=== PATIENT | male | born 2000 | race Caucasian/White ===

== ENCOUNTER → 2019-11-25 16:35 | Outpatient (CLI) | payer OTHER, SELFPAY ==
--- NOTE | 2019-11-25 16:37 | DI.RAD.S_ITS ---
PROCEDURE: XR FOOT LT MIN 3V INDICATIONS: left foot and great toe pain TECHNIQUE: 3 views of the foot were acquired. COMPARISON: None. FINDINGS: Bones: No fractures or dislocations. No suspicious bony lesions. Soft tissues: No tibiotalar joint effusion. Achilles tendon appears normal. IMPRESSION: No definite radiographic abnormality. If pain persists with conservative management, consider cross sectional imaging such as CT or MRI for further assessment. Dictated by: Tom Mueller [facility] Interpreted: Babita Cash MD on 11/25/2019 at 16:58 Approved by: Babita Cash M.D. on 11/25/2019 at 18:21
== END ==
PROVIDERS: PCP Registered Nurse; Referring Provider Registered Nurse; Visit Provider Registered Nurse
DX: M79.672 Pain in left foot (principal); M79.675 Pain in left toe(s)
CPT/HCPCS: 73630

== ENCOUNTER 2024-05-02 07:50 | Emergency (ER) | payer OTHER, SELFPAY ==
[2024-05-02] VITALS (7 sets, daily range): BP systolic 105–132; BP diastolic 65–81; PULSE 66–85; RESP 18–19; TEMP 36.9; O2SAT 97–100; BMI 21.9
--- NOTE | 2024-05-02 07:56 | ED.GENADULT ---
HPI - General Adult General Chief complaint: Abdominal Pain Stated complaint: blood in stool Time Seen by Provider: 05/02/24 07:55 History of Present Illness HPI narrative: 23-year-old male without history of known Crohn's disease or chronic abdominal issues, no recent travel or antibiotic exposure, since yesterday has had mid lower abdominal cramping, early this morning had bright red blood per rectum, not necessarily mixed with stool, some stool flex, also some mucus flex. No similar episodes before. No exposure to persons with similar symptoms. No fevers or chills. Related Data Home Medications Medication Instructions Recorded Confirmed loratadine 10 mg tablet (Claritin) 10 mg PO DAILY 11/25/19 09/17/20 Previous Rx's Medication Instructions Recorded amoxicillin 875 mg-potassium 1 tab PO BID #20 tabs 05/02/24 clavulanate 125 mg tablet Allergies Allergy/AdvReac Type Severity Reaction Status Date / Time No Known Drug Allergies Allergy Verified 09/17/20 07:47 Patient History Medical History Ankle pain (~2019) Surgical History Anesthesia [place] teeth removed (~12/2015) Family History Mother Breast cancer Sister Mental health problem Grandmother Alzheimer's disease Social History Smoking Status: Never smoker Smoking Status: Never smoker Exam Narrative Exam Narrative: GENERAL: Well-developed patient, in mild distress. HEAD: Atraumatic. Normocephalic. EYES: Pupils equal round and reactive. Extraocular motions intact. No scleral icterus. No injection or drainage. ENT: Nose without bleeding, purulent drainage. Throat without erythema, tonsillar hypertrophy or exudate. Airway patent. NECK: Trachea midline. Non tender CARDIOVASCULAR: Regular rate and rhythm without murmurs, gallops, or rubs. RESPIRATORY: Clear to auscultation. Breath sounds equal bilaterally. No wheezes, rales, or rhonchi. GASTROINTESTINAL: Abdomen nondistended, some central mild tenderness, no rebound tenderness, bowel tones unremarkable. EXTREMITIES: No edema or joint tenderness. BACK: Nontender without deformity or crepitance. No flank tenderness. NEURO: AOx3. Motor functions grossly nonfocal SKIN: No rash or erythema of visible areas Initial Vital Signs Initial Vital Signs: Vital Signs Pulse Rate 85 05/02/24 07:53 Blood Pressure 132/81 05/02/24 07:53 Pulse Oximetry 97 05/02/24 07:53 Course Orders Ordered: Discontinued Medications Amoxicillin/Clavulanate Potassium (Amoxicillin/Clav 875/125 Mg) 1 tab PO NOW ONE Stop: 05/02/24 09:20 Last Admin: 05/02/24 09:24 Dose: 1 tab Documented By: Sodium Chloride (Normal Saline 0.9%) 1,000 mls @ 1,000 mls/hr IV BOLUS ONE Stop: 05/02/24 09:10 Last Admin: 05/02/24 08:34 Dose: 1,000 mls/hr Documented By: YOLIE Vital Signs Vital signs: Vital Signs - 8 hr 05/02/24 07:53 05/02/24 07:53 05/02/24 07:55 Temperature 98.5 F Pulse Rate 85 80 Respiratory Rate 18 Blood Pressure 132/81 132/81 Pulse Oximetry 97 97 Oxygen Delivery Method Room Air 05/02/24 08:00 05/02/24 08:00 05/02/24 08:30 Temperature Pulse Rate 78 66 Respiratory Rate Blood Pressure 109/67 Pulse Oximetry 98 100 Oxygen Delivery Method 05/02/24 09:10 Temperature Pulse Rate 66 Respiratory Rate 18 Blood Pressure 105/65 Pulse Oximetry 99 Oxygen Delivery Method Room Air Medical Decision Making Lab Data Lab results reviewed: Yes I reviewed the patient's lab results. Lab results narrative: White blood cell count 5500, hemoglobin 14.6, platelets adequate. Basic metabolic panel unremarkable. Liver functions and lipase normal. 05/02/24 08:15 05/02/24 08:15 Labs: Lab Results 05/02/24 Range/Units 08:15 WBC 5.5 (4.5-11.0) X10^3/uL RBC 4.97 (4.5-5.9) X10^6/uL Hgb 14.6 (13.5-17.5) g/dL Hct 43.0 (41-53) % MCV 86.4 (80-100) fL MCH 29.3 (26-34) PG MCHC 33.9 (30-36) % RDW 12.7 (11.6-14.8) % Plt Count 130 L (150-400) X10^3/uL Neut % (Auto) 77.0 H (50-75) % Lymph % (Auto) 12.8 L (25-40) % Z[place]ala % (Auto) 9.7 (3-14) % Eos % (Auto) 0.1 L (2-4) % Baso % (Auto) 0.4 (0-2) % Neut # (Auto) 4200 (0676-8160) /uL Lymph # (Auto) 700 L (6853-1756) /uL [place] # (Auto) 500 (0-900) /uL Eos # (Auto) 0 (0-450) /uL Baso # (Auto) 0 (0-100) /uL Sodium 137 (137-145) mmol/L Potassium 4.1 (3.4-5.1) mmol/L Chloride 106 (98-107) mmol/L Carbon Dioxide 23 (22-32) mmol/L BUN 15 (9-20) mg/dL Creatinine 0.95 (0.66-1.25) mg/dL Estimated GFR > 60 (>60) mL/min BUN/Creatinine Ratio 15.8 (6-22) Glucose 105 H (70-100) mg/dL Calcium 9.7 (8.4-10.2) mg/dL Total Bilirubin 0.6 (0.2-1.3) mg/dL AST 36 (17-59) IU/L ALT 30 (<50) IU/L Alkaline Phosphatase 58 (38-126) U/L Total Protein 7.4 (6.3-8.2) g/dL Albumin 4.5 (3.5-5.0) g/dL Globulin 2.9 (1.7-4.1) g/dL Albumin/Globulin Ratio 1.6 (1.0-2.8) Lipase 72 (23-300) U/L Imaging Data CT scan - abdomen/pelvis: Radiologist's Impression: [address] [address] [address] Scan Report Signed Patient: Devendra Mata MR#: [id number] : 2000 Acct:[id number] Age/Sex: 23 / M Date of Service: 05/02/24 Loc: ED Accession Number: [id number] Procedure: CT angio Abd/Pel GI Bleed Ordering Provider: Andrea Becerra MD PROCEDURE: CT ANGIO ABD/PEL GI BLEED INDICATIONS: GIB abd pain TECHNIQUE: After the administration of intravenous contrast, 2.5 mm thick sections acquired from the diaphragm to the symphysis. 10 mm maximum-intensity projection (MIP) reformats were then acquired. For radiation dose reduction, the following was used: automated exposure control. COMPARISON: None. FINDINGS: Image Quality: Diagnostic. Abdominal aorta: No abdominal aortic aneurysm or dissection. Mesenteric arteries: Patent without hemodynamically significant stenosis. No area of active contrast extravasation or accumulation is noted. Renal arteries: Patent without hemodynamically significant stenosis. OTHER: Lower Chest: No significant findings. Liver: No solid mass. Gallbladder: No radiopaque gallstones or wall thickening. Biliary ducts: No biliary dilation. Pancreas: No ductal dilation. Spleen: Size is within normal limits. Adrenal Glands: No adrenal nodules. Kidneys and Ureters: No hydronephrosis. No solid mass. No complex renal cystic lesion which requires follow up. Stomach and Bowel: There is no bowel obstruction. No gastric or small bowel wall thickening. Diffuse wall thickening and mild pericolonic fat stranding is noted involving descending colon and sigmoid colon with narrowing of the lumen and wall edema. No abscess collection. Peritoneum: Trace amount of free fluid is noted in lower abdomen. No free air. Ventral Wall: No hernia. Abdominal Nodes: No retroperitoneal or mesenteric adenopathy by size criteria. Vessels: Aorta and inferior vena cava are normal in size. PELVIS: Pelvic Organs: Unremarkable. Bladder: Unremarkable. Pelvic Nodes: No enlarged lymph nodes. Miscellaneous: No inguinal hernias are seen. Rectal wall thickening is seen. No perirectal abscess collection. Bones: No aggressive osseous abnormality. IMPRESSION: 1. No abdominal aortic aneurysm or dissection. No hemodynamically significant stenosis is seen in mesenteric arteries or renal arteries. No evidence of contrast extravasation or abnormal accumulation to suggest active bleeding. 2. Suggestion of predominantly descending and sigmoid colitis. No abscess collection. Small amount of lower abdomen/pelvic free fluid. No gross free air. No other area of abnormal bowel wall thickening. 3. Rectal wall thickening suggestive of proctitis. No perirectal abscess collection. No perirectal hematoma. Dictated by: Jose Angel Ureña M.D. on 05/02/2024 at 8:57 Approved by: Jose Angel Ureña M.D. on 05/02/2024 at 9:02 [facility] Narrative Medical decision making narrative: 23-year-old male with crampy abdominal pain and rectal bleeding, occasional mucus flex, not necessarily mixed with blood. No recent antibiotics. No travel. No injury. No history of Crohn's disease or chronic abdominal issues. Afebrile, sirs screen negative. Some tenderness to periumbilical lower abdominal region. Labs pending. CT abdomen pelvis imaging ordered. GI pathogens panel obtained if any stool specimen received CT shows no definite area of active bleeding, does show descending and sigmoid colitis changes, no abscess or perforation changes, no obstructive changes, also some rectal wall thickening suggestive of proctitis, no perirectal abscess. See radiology report. Copy of the printed report given to patient with explanation. We will start antibiotics, discussed Cipro/Flagyl versus Augmentin regimen, no penicillin allergy, he would like single dose antibiotic regimen, 1st dose Augmentin. Prescription for Augmentin sent to local pharmacy. He will follow up with [facility] next week. Return precautions discussed. Discharge Plan Departure Patient Disposition: Home Clinical Impression: Colitis, Acute proctitis Instructions: DI for Colitis Activity Restrictions/Additional Instructions: Rectal bleeding with lower abdominal cramping, no fever, hemoglobin level was normal. Vital signs adequate, no fever, no low blood pressure, no fast heart rate. CT scan of the abdomen and pelvis done, showed no active extravasation suggestive any particular site of bleeding. CT did show inflammatory changes in the distal and sigmoid colon, as well as the perirectal area, without perforation or abscess or obstruction changes. Copy of the report was provided. We discussed antibiotic regimen for these changes for treatment of colitis/proctitis, he preferred single antibiotic agent. First dose oral Augmentin antibiotic dispensed in the emergency department, prescription sent to your pharmacy for 10 day course. Recheck symptoms this next week or so with your regular providers at [facility]. Return to this/nearest emergency department for any change worsening symptoms or any concerns prior Prescriptions: New amoxicillin-pot clavulanate 875-125 mg tablet 1 tab PO BID Qty: 20 0RF No Action loratadine [Claritin] 10 mg tablet 10 mg PO DAILY Stand Alone Forms: Patient Portal/API/Survey
--- NOTE | 2024-05-02 08:19 | DI.CT.S_ITS ---
PROCEDURE: CT ANGIO ABD/PEL GI BLEED INDICATIONS: GIB abd pain TECHNIQUE: After the administration of intravenous contrast, 2.5 mm thick sections acquired from the diaphragm to the symphysis. 10 mm maximum-intensity projection (MIP) reformats were then acquired. For radiation dose reduction, the following was used: automated exposure control. COMPARISON: None. FINDINGS: Image Quality: Diagnostic. Abdominal aorta: No abdominal aortic aneurysm or dissection. Mesenteric arteries: Patent without hemodynamically significant stenosis. No area of active contrast extravasation or accumulation is noted. Renal arteries: Patent without hemodynamically significant stenosis. OTHER: Lower Chest: No significant findings. Liver: No solid mass. Gallbladder: No radiopaque gallstones or wall thickening. Biliary ducts: No biliary dilation. Pancreas: No ductal dilation. Spleen: Size is within normal limits. Adrenal Glands: No adrenal nodules. Kidneys and Ureters: No hydronephrosis. No solid mass. No complex renal cystic lesion which requires follow up. Stomach and Bowel: There is no bowel obstruction. No gastric or small bowel wall thickening. Diffuse wall thickening and mild pericolonic fat stranding is noted involving descending colon and sigmoid colon with narrowing of the lumen and wall edema. No abscess collection. Peritoneum: Trace amount of free fluid is noted in lower abdomen. No free air. Ventral Wall: No hernia. Abdominal Nodes: No retroperitoneal or mesenteric adenopathy by size criteria. Vessels: Aorta and inferior vena cava are normal in size. PELVIS: Pelvic Organs: Unremarkable. Bladder: Unremarkable. Pelvic Nodes: No enlarged lymph nodes. Miscellaneous: No inguinal hernias are seen. Rectal wall thickening is seen. No perirectal abscess collection. Bones: No aggressive osseous abnormality. IMPRESSION: 1. No abdominal aortic aneurysm or dissection. No hemodynamically significant stenosis is seen in mesenteric arteries or renal arteries. No evidence of contrast extravasation or abnormal accumulation to suggest active bleeding. 2. Suggestion of predominantly descending and sigmoid colitis. No abscess collection. Small amount of lower abdomen/pelvic free fluid. No gross free air. No other area of abnormal bowel wall thickening. 3. Rectal wall thickening suggestive of proctitis. No perirectal abscess collection. No perirectal hematoma. Dictated by: Jose Angel Ureña M.D. on 05/02/2024 at 8:57 Approved by: Jose Angel Ureña M.D. on 05/02/2024 at 9:02
[2024-05-02 08:23] LABS: Add Manual Diff / Slide Review NO; Basophils Absolute Auto 0 /uL (0-100); Basophils Percent Auto 0.4 % (0-2); Eosinophils Absolute Auto 0 /uL (0-450); Eosinophils Percent Auto 0.1 % (2-4); Hemoglobin 14.6 g/dL (13.5-17.5); Lymphocytes Absolute Auto 700 /uL (1100-4500); Lymphocytes Percent Auto 12.8 % (25-40); Mean Corpuscular HGB Conc 33.9 % (30-36); Mean Corpuscular Hemoglobin 29.3 PG (26-34); Mean Corpuscular Volume 86.4 fL (80-100); Monocytes Absolute Auto 500 /uL (0-900); Monocytes Percent Auto 9.7 % (3-14); Neutrophils Absolute Auto 4200 /uL (1500-7000); Platelet Count 130 X10^3/uL (150-400); Red Blood Cell Count 4.97 X10^6/uL (4.5-5.9); Red Cell Distribution Width 12.7 % (11.6-14.8); White Blood Cell Count 5.5 X10^3/uL (4.5-11.0)
[2024-05-02] MEDS: SODIUM CHLORIDE 0.9% 1,000 ML 1000 ML IV (08:34)
[2024-05-02 08:35] LABS: Alanine Aminotransferase 30 IU/L (<50); Albumin 4.5 g/dL (3.5-5.0); Albumin Globulin Ratio 1.6 (1.0-2.8); Alkaline Phosphatase 58 U/L (38-126); Aspartate Aminotransferase 36 IU/L (17-59); BUN Creatinine Ratio 15.8 (6-22); Bilirubin Total 0.6 mg/dL (0.2-1.3); Blood Urea Nitrogen 15 mg/dL (9-20); Calcium 9.7 mg/dL (8.4-10.2); Carbon Dioxide 23 mmol/L (22-32); Chloride 106 mmol/L (98-107); Estimated Glomerular Filt Rate > 60 mL/min (>60); Globulin 2.9 g/dL (1.7-4.1); Glucose 105 mg/dL (70-100); HEMOLYSIS < 15 (0-50); Lipase 72 U/L (23-300); Potassium 4.1 mmol/L (3.4-5.1); Sodium 137 mmol/L (137-145); Total Protein 7.4 g/dL (6.3-8.2)
--- NOTE | 2024-05-02 09:11 | PC.NURSE ---
Pt sitting up in [facility]. Appears in NAD. Discussed plan of care, understands. Waiting for CT results to be read. Call yepez within reach.
[2024-05-02] MEDS: AMOXICILLIN/CLAV 875/125 MG 1 TAB PO (09:24)
== END 2024-05-02 09:32 | disposition home or self-care (01) ==
PROVIDERS: Emergency Provider Emergency Medicine
DX: K52.9 Noninfective gastroenteritis and colitis, unspecified (principal); K62.89 Other specified diseases of anus and rectum
CPT/HCPCS: 36415; 74174; 80053; 83690; 85025; 99284; Q9967